=== PATIENT | female | born 1950 | race Caucasian/White ===

== ENCOUNTER 2017-03-01 14:44 | Emergency (ER) | payer MEDICAID ==
[2017-03-01 17:08] VITALS: BP 147/84
== END 2017-03-01 17:08 | disposition home or self-care (01) ==
LOC: ED 14:44
DX: M25.561 Pain in right knee (principal); I10 Essential (primary) hypertension; E11.9 Type 2 diabetes mellitus without complications

== ENCOUNTER 2017-06-16 12:57 | Emergency (ER) | payer MEDICAID ==
[~2017-06-16] VITALS: Ht 162.6 cm; Wt 70.3 kg
[2017-06-16 13:02] VITALS: BP 158/91
[2017-06-16 13:44] LABS: microscopic required? NO
[2017-06-16 14:03] LABS: UA SPECIFIC GRAVITY <=1.005 (1.005-1.035); urine erythrocyte NEGATIVE (NEGATIVE)
== END 2017-06-16 15:03 | disposition home or self-care (01) ==
LOC: ED 12:57
PROVIDERS: Emergency Medicine
DX: R10.31 Right lower quadrant pain (principal); I10 Essential (primary) hypertension; E11.9 Type 2 diabetes mellitus without complications; Z90.89 Acquired absence of other organs